=== PATIENT | male | born 1990 | race Asian ===

== ENCOUNTER 2017-04-04 23:54 | Emergency (ER) | payer BC ==
[~2017-04-04] VITALS: Ht 182.9 cm; Wt 86.2 kg
--- NOTE | 2017-04-05 02:13 | Emergency Room Report ---
History of Present Illness General Chief Complaint: Lower Extremity Injury Source: Patient Present Illness HPI 26YOM with left little toe splinter, accidentally kicked cabinet Denies pain to toe/foot Couldnt remove at home Allergies: Coded Allergies: SULFA (SULFONAMIDE ANTIBIOTICS) (Verified Allergy, Unknown, 04/05/17) Patient History Past Medical History: none Past Surgical History: none Pertinent Family History: none Social History: Denies: smoking, alcohol use, drug use Immunizations: UTD Reviewed Nursing Documentation: PMH: Agreed, PSxH: Agreed Nursing Documentation-PMH Hx Asthma: Yes Review of Systems All Other Systems: negative except mentioned in HPI Physical Exam Vital Signs Date Time Temp Pulse Resp B/P (MAP) Pulse Ox O2 Delivery O2 Flow Rate FiO2 04/04/17 23:58 97.7 60 20 125/81 100 Room Air 97.7 Sp02 EP Interpretation: reviewed, normal General Appearance: normal inspection, well appearing, no apparent distress, alert, GCS 15, non-toxic Head: normocephalic, atraumatic Eyes: bilateral eye PERRL, bilateral eye EOMI ENT: normal ENT inspection, hearing grossly normal, normal pharynx, no angioedema, normal voice, TMs + canals normal, uvula midline, moist mucus membranes Neck: normal inspection, full range of motion, supple, thyroid normal, no meningismus, no bony tend Respiratory: normal inspection, lungs clear, normal breath sounds, no rhonchi, no respiratory distress, no retraction, no accessory muscle use, no wheezing, speaking full sentences Cardiovascular #1: regular rate, rhythm, no edema, no JVD, normal capillary refill Gastrointestinal: normal inspection, normal bowel sounds, non tender, soft, no mass, no peritonitis, non-distended, no guarding, no hernia, no pulsatile mass Genitourinary: no CVA tenderness Musculoskeletal: normal inspection, back normal, normal range of motion, no calf tenderness, pelvis stable, Jess's Sign negative Neurologic: normal inspection, alert, oriented x3, responsive, ice cream scooper III-XII nml as tested, motor strength/tone normal, cerebellar normal, normal gait, speech normal Psychiatric: normal inspection, judgement/insight normal, mood/affect normal, no suicidal/homicidal ideation, no delusions Skin: normal inspection, normal color, no rash, other - Linear very thin splinter extending length of nail of left 5th little toe. No ttp to toe/foot. No sign of infection Lymphatic: normal inspection, no adenopathy Medical Decision Making Diagnostic Impression: Primary Impression: Splinter hemorrhage of toenail ER Course VSS, afebrile No sign of trauma to toe/foot RN able to remove proximal portion of splinter, nail I offered digital toe block and cutting down of nail for rest of removal However patient states feels better after proximal part/nail removed - pain he has now is only exposed nail at top Dermabond applied with improvement Printed home remedies for splinter removal for patient Advised podiatry followup if no improvement discharge home Last Vital Signs Date Time Temp Pulse Resp B/P (MAP) Pulse Ox O2 Delivery O2 Flow Rate FiO2 04/04/17 23:58 97.7 60 20 125/81 100 Room Air 97.7 Status: improved Disposition: HOME, SELF-CARE Condition: Improved Patient Instructions: Sliver Removal, Care After DULCE STEPHEN M.D. Apr 05, 2017 02:13
[2017-04-05 02:23] VITALS: BP 125/81
== END 2017-04-05 02:25 | disposition home or self-care (01) ==
LOC: EMR 04-05 00:14
DX: S90.455A Superficial foreign body, left lesser toe(s), initial encounter (principal); W45.8XXA Other foreign body or object entering through skin, initial encounter; Y92.009 Unspecified place in unspecified non-institutional (private) residence as the place of occurrence of the external cause; J45.909 Unspecified asthma, uncomplicated; Z88.2 Allergy status to sulfonamides
CPT/HCPCS: 99283